=== PATIENT | male | born 1990 | race Caucasian/White ===

== ENCOUNTER 2019-07-31 16:45 | Emergency (ER) | payer SELFPAY ==
[~2019-07-31] VITALS: Ht 162.6 cm; Wt 75.0 kg
[2019-07-31] MEDS ORDERED: PERTUSS(ACELL),DIPH,TET VAC/PF 0.5 ML VIAL IM ONE (17:30)
[2019-07-31 19:30] VITALS: BP 126/74
== END 2019-07-31 19:36 | disposition home or self-care (01) ==
LOC: EMS 16:46
DX: S61.411A Laceration without foreign body of right hand, initial encounter (principal); W22.03XA Walked into furniture, initial encounter; Y93.89 Activity, other specified; Y92.511 Restaurant or cafe as the place of occurrence of the external cause; Y99.8 Other external cause status
CPT/HCPCS: 90471; 90715